=== PATIENT | female | born 1950 | race Caucasian/White ===

== ENCOUNTER 2016-12-17 21:37 | Emergency (ER) | payer OTHER ==
[2016-12-17 21:56] VITALS: BP 136/86; PULSE 67; RESP 16; TEMP 98.4; O2SAT 96
[2016-12-17] MEDS ORDERED: predniSONE 20 MG TAB PO ONE (22:11)
--- NOTE | 2016-12-17 22:14 | EDPHY ---
H & P Time Seen by Provider: 12/17/16 21:57 HPI/ROS: This patient reports intense itching of the skin in her upper thorax and back. She explains that she did get a sunburn outside on Thursday, 3 days prior to arrival but denies any particular itching. Today she went fishing with her daughter using worms for bait and felt fine until she got home when she started having significant itching. She took a shower tried rubbing alcohol and aloe vera as well as topical steroid cream without significant improvement. She did take an arcus also medicine that has an antihistamine at prior to arrival reports mild relief from that. She did not take Benadryl could she states that she had anaphylaxis and response to some Benadryl preparation is little girl in has not had it since. She denies any other associated symptoms. ROS: No fevers or other constitutional symptoms HEENT: No URI symptoms or coryza or sneezing. No seasonal allergies. Pulmonary: No wheezing. Cardiovascular: No lightheadedness GI: No nausea or vomiting 7 point ROS is otherwise negative Smoking Status: Never smoked Physical Exam: Physical Exam Vital signs are normal. General: No acute distress HEENT: Nose: Clear bilaterally. No sinus tenderness to percussion. Ears: External canals and tympanic membranes are clear with no erythema or abnormal findings bilaterally. Oropharynx: No erythema or exudates. No dysphonia. No drooling or stridor. No angioedema Eyes: Pupils equal and react to light. Extraocular motions are intact. Neck: Supple with no meningismus. No lymphadenopathy Lungs: Clear to auscultation bilaterally with no rales, rhonchi or wheeze. No respiratory distress. Cardiac: Regular rate and rhythm with no murmur gallop or rub Skin: There is mild erythema to the upper torso and upper back consistent with a 1st degree burn/sunburn with no petechia purpura or raised lesions. Appreciate no urticaria. Neuro: Alert with no focal deficits noted. Initial differential diagnosis: Topical dermatitis, sunburn dermatitis, other allergic response Constitutional: Initial Vital Signs Temperature (C) 36.9 C 12/17/16 21:53 Heart Rate 67 12/17/16 21:53 Respiratory Rate 16 12/17/16 21:53 Blood Pressure 136/86 H 12/17/16 21:53 O2 Sat (%) 96 12/17/16 21:53 O2 Delivery Mode Room Air Allergies/Adverse Reactions: diphenhydramine [From Benadryl] Allergy (Severe, Verified 12/17/16 21:57) Anaphylaxis codeine Allergy (Intermediate, Verified 12/17/16 21:57) Other-Enter Comments povidone-iodine [From Betadine] Allergy (Intermediate, Verified 12/17/16 21:57) Rash soap [From Betadine] Allergy (Intermediate, Verified 12/17/16 21:57) Rash Home Medications: Medication Instructions Recorded Atorvastatin Calcium 12/17/16 Metformin HCl 12/17/16 Sertraline HCl 12/17/16 hydrOXYzine HCL [Hydroxyzine HCl] 50 - 100 mg PO QID PRN #30 tablet 12/17/16 MDM/Departure - [facility] ED Course/Re-evaluation: Prednisone 40 mg p. o. Given the patient's supposed anaphylaxis from Benadryl will hold off on Benadryl. I think Atarax is reasonable option for her. However pharmacies are closed we do not have Atarax the clinic so treat her with prednisone for tonight. She will pickups Atarax in the morning and continue her [place] antihistamine currently. No evidence of anaphylaxis or other concerning findings - Depart Disposition: Home, Routine, Self-Care Clinical Impression: Pruritus, Sunburn Condition: Good Instructions: Sunburn (ED), Itchy Skin (ED) Additional Instructions: Diagnoses:. Itching skin 2. Sunburn Plan: Take your office also tablet tonight. 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 He can continue the steroid cream near skin in feel like. Return for any significant worsening despite the treatment plan Prescriptions: hydrOXYzine HCL [Hydroxyzine HCl] 50 - 100 mg PO QID PRN #30 tablet PRN Reason: Itching Referrals: NONE *PRIMARY CARE P,. [Primary Care Provider] - As per Instructions
== END 2016-12-17 22:32 | disposition home or self-care (01) ==
LOC: CED 21:37
DX: L29.9 Pruritus, unspecified (principal); L55.0 Sunburn of first degree